=== PATIENT | female | born 1990 | race Caucasian/White ===

== ENCOUNTER 2019-10-06 14:11 | Emergency (ER) | payer OTHER ==
[~2019-10-06] VITALS: Ht 165.1 cm; Wt 122.7 kg
[~2019-10-06 14:11] MED LIST: CEPH-571 PO; ONDA4TAB6 PO; PROC-8 PO
[2019-10-06 14:13] VITALS: BP 168/86
[2019-10-06] MEDS ORDERED: ALBU8.5H8 IH (14:32)
== END 2019-10-06 14:44 | disposition home or self-care (01) ==
LOC: ER 14:11
DX: J11.1 Influenza due to unidentified influenza virus with other respiratory manifestations (principal); G89.29 Other chronic pain; Z88.1 Allergy status to other antibiotic agents
CPT/HCPCS: 99283

== ENCOUNTER 2024-01-27 09:14 | Outpatient (CLI) | payer MEDICAID ==
[~2024-01-27] VITALS: Ht 165.1 cm; Wt 113.4 kg
[~2024-01-27 09:14] MED LIST changes: +ALBU8.5H17 IH
[2024-01-27 09:41] VITALS: PULSE 74; RESP 13; O2SAT 98
[2024-01-27 09:52] VITALS: PULSE 69; RESP 15
[2024-01-27] MEDS: albuterol 2.5 MG/3 ML nebule NEB ONE (10:03)
== END 2024-01-27 23:59 | disposition home or self-care (01) ==
LOC: RT 09:14
PROVIDERS: ATTEND Nurse Practitioner Family
DX: R05.9 Cough, unspecified (principal)
CPT/HCPCS: 94060; 94760